=== PATIENT | female | born 1955 | race Caucasian/White ===

== ENCOUNTER 2016-08-03 09:53 | Day surgery (SDC) | payer BC ==
[2016-08-01 08:58] VITALS: BMI 33.3
[~2016-08-03 09:53] MED LIST: LACTATED RINGERS 1,000 ML IV SCH; LIDOCAINE 1% 20 ML VIAL (10MG/ML) FOR IV START INTRADERMA PRN
[2016-08-03 10:50] VITALS: RESP 16; TEMP 98.5
[2016-08-03] MEDS ORDERED: PROPOFOL 10 MG/ML 20 ML VIAL IV ONE (11:20)
--- NOTE | 2016-08-03 11:41 | P.PCN ---
Date of Procedure: 08/03/16 Procedure(s) Performed: BRIEF HISTORY: Patient is a 61-year-old pleasant white female, scheduled for an elective colonoscopy as a part of evaluation of intermittent rectal bleeding for the last 6 months duration. She has family history of colon cancer diagnosed in her mother as well as her father in their 50s and 80s respectively. PROCEDURE PERFORMED: Colonoscopy with snare polypectomy. PREOPERATIVE DIAGNOSIS: Rectal bleeding. IV sedation per Anesthesia. PROCEDURE: After informed consent was obtained, the patient, was brought into the endoscopy unit. IV sedation was administered by Anesthesia under continuous monitoring. Digital rectal examination was normal. Initially the Olympus CF- 160 flexible video colonoscope was then inserted in the rectum, gradually advanced into the cecum without any difficulty. Careful examination was performed as the scope was gradually being withdrawn. Ileocecal valve and the appendiceal orifice were visualized and appeared normal. Prep was excellent. Mucosa of the cecum, ascending colon, transverse colon, appeared normal. In the descending colon there was a 5 mm polyp that was removed by snare polypectomy. In the distal sigmoid colon at 25 cm from the anal verge there was a 1 cm pancreatic polyp removed by snare polypectomy. There are scattered left sided diverticulosis seen. The descending colon, sigmoid colon, and rectum appeared normal. Retroflexion was performed in the rectum and small internal hemorrhoids were seen. The patient tolerated the procedure well. IMPRESSION: 5 mm descending colon polyp status post polypectomy 1 cm pedunculated distal sigmoid colon polyp status post polypectomy Small internal hemorrhoids Scattered diverticulosis. RECOMMENDATIONS: Findings of this examination were discussed with the patient as well as a family. She was advised to follow with the biopsy results. If the biopsy shows a tubular adenoma she can have a repeat colonoscopy in 3 years. In the meantime she was advised to be a high-fiber diet and take fiber supplements on a regular basis.
[2016-08-03 12:08] VITALS: BP 123/83; PULSE 66
== END 2016-08-03 12:52 | disposition home or self-care (01) ==
LOC: ORWHC2ENDO 09:53
PROVIDERS: ATTEND Internal Medicine Gastroenterology
DX: D12.4 Benign neoplasm of descending colon (principal); D12.5 Benign neoplasm of sigmoid colon; K57.30 Diverticulosis of large intestine without perforation or abscess without bleeding; K64.8 Other hemorrhoids; Z80.0 Family history of malignant neoplasm of digestive organs; Z79.899 Other long term (current) drug therapy; Z88.2 Allergy status to sulfonamides; Z88.1 Allergy status to other antibiotic agents; Z88.5 Allergy status to narcotic agent; Z88.8 Allergy status to other drugs, medicaments and biological substances
CPT/HCPCS: 88305; 45385; J2704

== ENCOUNTER → 2017-11-01 | Outpatient (CLI) | payer BC ==
--- NOTE | 2017-11-02 07:59 | EST ---
EXERCISE STRESS AGE: 62 SEX: F HT: 63 WT: 192 PROTOCOL: Stress Test STAGE: 3 DURATION OF EXERCISE: 6:15 HEART RATE REST: 87 BLOOD PRESSURE REST: 120/91 MAXIMUM HEART RATE ACHIEVED: 139 MAXIMUM BLOOD PRESSURE: 168/106 85% MPHR: 136 100% MPHR: 160 METS: 7.5 INDICATIONS: Abnormal EKG and chest pain. CLINICAL INFORMATION: Baseline EKG shows sinus rhythm, normal axis, normal intervals. Patient exercised on Pablo protocol for a total of 6 minutes achieving 7 METS, 87% of predicted maximal heart rate without chest pain or diagnostic ST-segment depression. CONCLUSION: 1. Average exercise tolerance. 2. Negative stress test by EKG criteria. MMODL / IJN: [id number] /
== END | disposition home or self-care (01) ==
LOC: RADNMMAIN 10:39
PROVIDERS: ATTEND Family Medicine
DX: R07.9 Chest pain, unspecified (principal); R94.31 Abnormal electrocardiogram [ECG] [EKG]
CPT/HCPCS: 93017